=== PATIENT | female | born 1960 | race Caucasian/White ===

== ENCOUNTER → 2021-01-07 12:16 | Outpatient (CLI) | payer OTHER, SELFPAY ==
--- NOTE | 2021-01-07 | DI.MRI.S_ITS ---
BREAST MRI OF BOTH BREASTS: 01/07/2021 CLINICAL: Malignant neoplasm of right breast. Comparison is made to exams dated: 11/20/2020 ultrasound biopsy, 11/20/2020 mammogram, 11/13/2020 mammogram, 10/26/2020 mammogram, 12/08/2020 stereotactic biopsy, and 11/13/2020 ultrasound - [facility]. INDICATIONS: Malignant neoplasm of unspecified site of right TECHNIQUE: The patient was placed prone in a dedicated breast imaging coil. Precontrast axial STIR and 3D FLASH without fat saturation sequences were obtained. Both before and after bolus injection of contrast, sequential 1-minute axial 3D FLASH with fat saturation sequences for 3 time points, with subtraction images and maximum intensity projections (MIP's) generated. Delayed sagittal FLASH images with fat saturation were also obtained. Computer-aided detection, including computer algorithm analysis of MRI image data for lesion detection and characterization, pharmacokinetic analysis, with further physician review for interpretation, was performed. FINDINGS: Image quality: Excellent. There is moderate nodular background parenchymal enhancement. Right breast: A 0.9 x 0.8 x 0.9 cm irregular spiculated enhancing mass (56/7, 43/15) is seen in the right breast at the 9 o'clock position anterior depth approximately 3.5 cm from the nipple with associated biopsy clip, consistent with the known biopsy-proven malignancy. Kinetic curve assessment demonstrates progressive enhancement. Just anterior to the mass, there is an oval 2.0 x 1.4 x 1.5 cm collection with intrinsic T1-hyperintense signal and hypointense signal on T2-weighted images with a thin rim of enhancement, consistent with a small hematoma related to the prior biopsy. Additional biopsy clip is seen in the right breast at the 9 o'clock position middle depth, corresponding to the prior benign biopsy in this location without an associated enhancing mass. Multiple benign nonenhancing T2-hyperintense cysts are seen. The previously seen mildly septated cyst in the right breast 12 o'clock position middle depth demonstrates no significant internal enhancement, and is considered benign. Left breast: No suspicious enhancing mass or abnormal non mass enhancement is seen in the left breast. Benign nonenhancing T2-hyperintense cysts are seen within the left breast. Miscellaneous: Multiple axillary lymph nodes are seen bilaterally in a symmetric distribution. The cortices of the lymph nodes are borderline in thickness, but uniform without eccentric thickening. Fatty lucy are preserved. No internal mammary lymphadenopathy. The included portions of the anterior chest wall and upper abdomen are unremarkable. IMPRESSION: KNOWN BIOPSY PROVEN MALIGNANCY 1. Known biopsy-proven malignancy in the right breast at the 9 o'clock position anterior depth measures 0.9 x 0.8 x 0.9 cm. A small benign hematoma is seen adjacent to the biopsy site. 2. No additional suspicious mass is seen in the right or left breast. Bilateral benign-appearing cysts. 3. Symmetric bilateral axillary lymph nodes with borderline cortical thickening are most likely benign. BIRADS 6: Known biopsy-proven malignancy. This exam was interpreted at Station ID: [id number]. Electronically Signed By: Jay Shearer M.D. ar/:01/07/2021 15:34:20 ACR BI-RADS Category 6: Known biopsy proven malignancy [id number]
== END ==
PROVIDERS: PCP Physician Assistant Medical; Referring Provider Physician Assistant Medical; Visit Provider Physician Assistant Medical
DX: L76.32 Postprocedural hematoma of skin and subcutaneous tissue following other procedure (principal); N60.01 Solitary cyst of right breast; N60.02 Solitary cyst of left breast; C50.811 Malignant neoplasm of overlapping sites of right female breast; R59.0 Localized enlarged lymph nodes
CPT/HCPCS: 77049